=== PATIENT | male | born 1970 | race Caucasian/White ===

== ENCOUNTER 2016-11-01 21:40 | Emergency (ER) | payer OTHER ==
--- NOTE | 2016-11-01 22:34 | ERNOTE ---
Abdominal HPI - Narrative Date of Service: 11/01/16 - General Chief Complaint: Abdominal Pain Time Seen by Provider: 11/01/16 22:31 Source: patient - Immun/Allergies/Home Medications Immunizatons: IMMUNIZATION HX Immunizations Up to Date Yes History of Influenza Vaccine Yes Hx Pneumococcal Vaccination No Allergies/Adverse Reactions: Allergies No Known Allergies Allergy (Verified 03/06/16 16:11) Home Medications: HOME MEDICATIONS NK [No Home Medication] 11/01/16 [Last Taken Unknown] - History of Present Illness Narrative: pt here for c/o of intermittent abdominal pain starting today. 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 He had an umbilical bulged and tenderness . He says he was told he had an umbilical hernia first noticed late last year after a ct for renal stone which also showed a renal tumor. He has since had a partial nephrectomy done in [place] at the end of last year. He has since seen Dr. Toro for the hernia but he did not want to do any surgery until every thing with the renal ca had been sorted. The pt. says he has unfortunately gained 60 pounds in the past few months, he was obese to begin with. He is scheduled to have a repeat CT scan for evaluation of the ca. on per Dr Thomas once insurance approves the test. Pt. says that currently there is no pain. He denies any N, V,D or constipation saying he had a normal BM earlier today. Timing: intermittent, gone now Modifying Factors - (Improves): Present: lying down Modifying Factors - (Worsens): Present: movement, exercise Associated Symptoms: Present: swelling/mass in abdomen Prior Treatment: Present: treated by physician Review of Systems - Review of Systems Constitutional: Present: See HPI EYE: Present: no symptoms reported ENT: Present: no symptoms reported Respiratory: Present: no symptoms reported Cardiology: Present: no symptoms reported Gastrointestinal/Abdominal: Present: See HPI, abdominal pain Genitourinary: Present: no symptoms reported Musculoskeletal: Present: no symptoms reported Skin: Present: no symptoms reported Neurological: Present: no symptoms reported Endocrine: Present: no symptoms reported Hematologic/Lymphatic: Present: no symptoms reported Psych: Present: no symptoms reported All Other Systems: All systems neg except as marked - Patient's Past Medical History Patient History - Medical: Kidney stone, Obesity, Other Patient History - Cardiac/Respiratory: CPAP/BiPAP Home Use, Sleep Apnea Patient History - Cancer: Kidney Patient History - Surgical Procedures: Cancer Surgery, Other Patient History - Other: None - Family History Father Family History - Medical: No pertinent hx Family History - Cardiac/Respiratory: No pertinent hx Mother Family History - Medical: No pertinent hx Family History - Cardiac/Respiratory: No pertinent hx - Social History Living Situations: home Abuse History: No History of abuse Psych History: No pertinent hx Smoking Status: Current every day smoker Have you smoked in the past 12 months: Yes Do you dip or chew tobacco: No Patient requests Smoking Cessation Consult: No Initiate information on Smoking Cessation: No Alcohol Use: none Drug Use: none - Immunizations Immunizations Up to Date: Yes Hx Pneumococcal Vaccination: No History of Influenza Vaccine: Yes Physical Exam - Physical Exam General Appearance: Present: wd/wn, alert, no apparent distress - very obese man. a & o & coop with nad. Respiratory: Present: no respiratory distress, normal breath sounds, lungs clear Cardiovascular/Chest: Present: regular rate, rhythm, no murmur Gastrointestinal/Abdominal: Present: normal bowel sounds, soft, no organomegaly , other - very large soft abdomen. he has healed surgical scars from his nephrectom a few months ago. there is a midline 4 cm healed scar about 3-4 cm proximal to the umbilicus with no sign of incisional defect or weakness on palpation and no tenderness at that site but just distal to that scar and proximal to the umbilicus iss a tender area but no bulging and i do not well an abdominal wall defect though at one point when I had the pt do a valsalva maneuver to see if it would replicate a buging hernia sac I did feel a small gas bubble that quickly receded with minimal pressure but no distended hernia sac was produced. When laying supine and relaxed the pt. states that he had no pain. ED Progress - Vital Signs Patient's Vital Signs:: I have reviewed the patient's vital signs. Vital Signs: Vital Signs 11/01/16 21:43 Temperature 36.8 C Pulse Rate 84 Respiratory 18 Rate Blood Pressure 142/92 O2 Sat by Pulse 96 Oximetry - Progress/Reassessment Chief Complaint: Abdominal Pain Plan - Plan Plan: I DID D/W DR. TORO WHO SUGGESTED THAT IF THERE WAS NO CURRENT BULGING OR INCARCERATION THAT NOTHING ELSE NEED BE DONE AT PRESENT. Departure - Departure Clinical Impression: Umbilical hernia Qualifiers: Obstruction and gangrene presence: without obstruction or gangrene Qualified Code(s): K42.9 - Umbilical hernia without obstruction or gangrene Disposition: Home self-care Condition: Good Instructions: Hernia, Adult, [id number] Additional Instructions: F/U WITH YOUR FAMILY DR OR SURGEON IF HAVING MORE TROUBLE BUT IT WOULD BE BEST TO WORK AT [employer]. IF THE HERNIOS PROTRUDES AGAIN AND IS UNCOMFORTABLE, TRY LAYING FLAT, RELAXING YOUR ABDOMINAL WALL AND IF THE SAC IS PROTRUDING USING THE PADS OF YOUR FINGERS TO GENTLY AND STEADILY PUSH THE SAC BACK IN. RETURN IF WORSE. Referrals: Daniel Roman MD [Primary Care Provider] -
--- OUTSIDE RECORDS SUMMARY | 2016-11-01 22:37 | XMS REPORT | Summary of Care ---
:1970 Author Organization [facility] Care Team Providers Name Role Phone No Family Phy, Physician Primary Care Physician Unavailable Encounter 04/09/16 - 04/11/16 [facility] [address] [place] [address] Vangie Cantu , Dir. Lab: [phone] [place] [address]- Discharge Disposition: Home Attending Physician: Ruiz Price MD Admitting Physician: Ruiz Price MD Referring Physician: Self, Referral Vital Signs Most recent to oldest 1 2 3 [Reference Range]: Orientation Oriented to Person, Place, Time Oriented to Person, Place, Time Oriented to Person, Place, Time (04/11/16 8:59 AM) (04/11/16 12:30 AM) (04/10/16 8:04 PM) Level of Consciousness Alert Alert Alert (04/11/16 8:59 AM) (04/11/16 12:30 AM) (04/10/16 8:04 PM) Activity Up ad karely Up ad karely Bathroom Privileges (04/11/16 9:54 AM) (04/11/16 7:36 AM) (04/11/16 7:20 AM) Assistance of None None None (04/11/16 9:54 AM) (04/11/16 7:36 AM) (04/11/16 7:20 AM) Distance (R) 600 ft 600 ft 300 ft (04/10/16 10:30 AM) (04/10/16 6:28 AM) (04/09/16 11:07 PM) Activity Tolerance Well Well Well (04/11/16 9:54 AM) (04/11/16 7:36 AM) (04/11/16 7:20 AM) Amount of Assist Independent Independent Independent Required (04/11/16 9:54 AM) (04/11/16 7:36 AM) (04/11/16 7:20 AM) Gait Steady Steady Steady (04/11/16 9:54 AM) (04/11/16 7:36 AM) (04/11/16 7:20 AM) Slept Most Most (04/11/16 4:00 AM) (04/11/16 2:01 AM) Respiratory Rate [12-30 18 brpm 18 brpm 18 brpm brpm] (04/11/16 9:45 AM) (04/11/16 7:31 AM) (04/11/16 6:07 AM) Blood Pressure 152/84mm hg 156/107mm hg 148/84mm hg [(reference range (04/11/16 9:45 AM) (04/11/16 7:31 AM) (04/11/16 6:07 AM) unavailable)/61-99 mm hg] Temperature F 98.0 degF 97.9 degF 98.1 degF [97.7-99.9 degF] (04/11/16 9:45 AM) (04/11/16 7:31 AM) (04/11/16 6:07 AM) Height 180.3 cm 180.3 cm (04/09/16 12:21 PM) (04/09/16 12:05 PM) Weight 120.455 kg 120.455 kg (04/09/16 12:21 PM) (04/09/16 12:05 PM) Problem List Condition Effective Dates Status Health Status Informant Smoker(Confirmed)1 Active 1Problem added as a result of documented Tobacco Use. Allergies, Adverse Reactions, Alerts No Known Allergies Medications acetaminophen-oxyCODONE 325 mg-5 mg oral tablet 1 Tab, PO, Q7Dnuec, X 10 day(s), # 40 Tab Start Date: 04/09/16 Stop Date: 04/19/16 Status: Ordereddocusate sodium 100 mg oral capsule 100 mg=1 Cap, PO, BID (Twice Daily), PRN PRN Constipation Start Date: 04/11/16 Status: Ordered Results BASIC CHEMISTRIES Most recent to oldest [Reference Range]: 1 2 Sodium [134-144 mmol/L] 136 mmol/L (04/10/16 4:38 AM) Potassium [3.5-5.2 mmol/L] 4.4 mmol/L (04/10/16 4:38 AM) Chloride [97-108 mmol/L] 99 mmol/L (04/10/16 4:38 AM) CO2 [18-29 mmol/L] 26 mmol/L (04/10/16 4:38 AM) AGAP [5-19 mmol/L] 11 mmol/L (04/10/16 4:38 AM) Gluc [65-99 mg/dL] 184 mg/dL *HI* (04/10/16 4:38 AM) BUN [6-24 mg/dL] 10 mg/dL (04/10/16 4:38 AM) Creatinine [0.76-1.27 mg/dL] 0.84 mg/dL (04/10/16 4:38 AM) eGFR 105 mL/min/1.73 m2 *NA* (04/10/16 4:38 AM) eGFR Amer 127 mL/min/1.73 m2 *NA* (04/10/16 4:38 AM) Bun/Crea [6-20 Ratio] 12 Ratio (04/10/16 4:38 AM) Calc Osmo [273-304] 276 (04/10/16 4:38 AM) Calcium [8.7-10.2 mg/dL] 8.7 mg/dL (04/10/16 4:38 AM) HEMOGRAM Most recent to oldest [Reference Range]: 1 2 WBC [4.80-10.80 thous/uL] 16.75 thous/uL 12.41 thous/uL *HI* *HI* (04/10/16 4:38 AM) (04/09/16 9:11 PM) RBC [4.70-6.10 mill/uL] 4.60 mill/uL 5.13 mill/uL *LOW* (04/09/16 9:11 PM) (04/10/16 4:38 AM) Hgb [14.0-18.0 gm/dL] 13.9 gm/dL 15.8 gm/dL *LOW* (04/09/16 9:11 PM) (04/10/16 4:38 AM) Hct [42.0-52.0 %] 40.8 % 46.0 % *LOW* (04/09/16 9:11 PM) (04/10/16 4:38 AM) MCV [83.0-97.0 fl] 88.7 fl 89.7 fl (04/10/16 4:38 AM) (04/09/16: PM) MCH [27.0-31.0 pg] 30.2 pg 30.8 pg (04/10/16 4:38 AM) (04/09/16: PM) MCHC [32.3-36.5 gm/dL] 34.1 gm/dL 34.3 gm/dL (04/10/16 4:38 AM) (04/09/16:11 PM) Platelet [130-450 thous/uL] 233 thous/uL 237 thous/uL (04/10/16 4:38 AM) (04/09/16: PM) MPV [9.4-12.4 fl] 10.0 fl 10.0 fl (04/10/16 4:38 AM) (04/09/16: PM) RDW-CV [11.5-15.5 %] 13.3 % 13.3 % (04/10/16 4:38 AM) (04/09/16:11 PM) AUTOMATED DIFF Most recent to oldest [Reference Range]: 1 2 Neut % 94.0 % *NA* (04/09/16 9:11 PM) Lymph % 4.1 % *NA* (04/09/16 9: PM) [place] % 1.7 % *NA* (04/09/16: PM) Eos % 0.0 % *NA* (04/09/16: PM) Baso % 0.0 % *NA* (04/09/16: PM) Neut # [1.50-7.50 thous/uL] 11.67 thous/uL *HI* (04/09/16 9:11 PM) Lymph # [1.10-3.00 thous/uL] 0.51 thous/uL *LOW* (04/09/16 9: PM) [place] # [0.10-0.75 thous/uL] 0.21 thous/uL (04/09/16 9:11 PM) Eos # [0.00-0.50 thous/uL] 0.00 thous/uL (04/09/16 9:11 PM) Baso # [0.00-0.10 thous/uL] 0.00 thous/uL (04/09/16 9:11 PM) MANUAL DIFF Most recent to oldest [Reference Range]: 1 2 IG Pc 0.2 % *NA* (04/09/16 9:11 PM) IG Abs [0.00-0.10 thous/uL] 0.02 thous/uL (04/09/16 9:11 PM) Immunizations No data available for this section Procedures Procedure Date Related Diagnosis Body Site Laparoscopic partial nephrectomy1 04/09/16 Reconstruction of left ankle 1988 Cystoscopy2 Cystoscopy3 [id number] removal with [id number] stent Social History Social History Type Response Alcohol Past Substance Abuse Past, Cocaine, 25 Years Smoking Status Current every day smoker; Number of years: 25 Assessment and Plan No data available for this section
[2016-11-01 22:52] VITALS: BP 143/81
== END 2016-11-01 23:13 | disposition home or self-care (01) ==
LOC: ER 21:40
DX: K42.9 Umbilical hernia without obstruction or gangrene (principal); Z72.0 Tobacco use; Z85.528 Personal history of other malignant neoplasm of kidney

== ENCOUNTER 2017-03-05 20:23 | Emergency (ER) | payer OTHER ==
[2017-03-05] MEDS ORDERED: DIPHTH,PERTUSS(ACELL),TET VAC 0.5 ML VIAL IM ONE ×2 (21:02→21:05)
--- NOTE | 2017-03-05 21:10 | ERNOTE ---
Medical Problem HPI - Narrative Date of Service: 03/05/17 - General Chief Complaint: Laceration Time Seen by Provider: 03/05/17 20:47 Source: patient, RN notes reviewed Exam Limitations: no limitations - Immun/Allergies/Home Medications Immunizations: IMMUNIZATION HX Immunizations Up to Date Yes History of Influenza Vaccine Yes Hx Pneumococcal Vaccination No Allergies/Adverse Reactions: Allergies No Known Allergies Allergy (Verified 03/05/17 20:51) Home Medications: HOME MEDICATIONS NK [No Home Medication] 11/01/16 [Last Taken Unknown] - History of Present History Narrative: 46 year old male with a laceration to the palmar surface of his right distal thumb. He cut himself while opening a can of beans about an hour ago. He is unsure of when he last had a tetanus vaccination. Date (Duration): 03/05/17 Time (Timing): 19:00 Review of Systems - Review of Systems Constitutional: Present: no symptoms reported EYE: Present: no symptoms reported ENT: Present: no symptoms reported Respiratory: Present: no symptoms reported Cardiology: Present: no symptoms reported Gastrointestinal/Abdominal: Present: no symptoms reported Genitourinary: Present: no symptoms reported Musculoskeletal: Absent: joint pain, joint swelling Skin: Absent: rash, lesions, change in color Neurological: Absent: dizziness/light-headedness, weakness, numbness, tingling Endocrine: Present: no symptoms reported Hematologic/Lymphatic: Absent: easy bruising, easy bleeding Psych: Present: no symptoms reported - Patient's Past Medical History Patient History - Medical: Kidney stone, Obesity, Other Patient History - Cardiac/Respiratory: CPAP/BiPAP Home Use, Sleep Apnea Patient History - Cancer: Kidney Patient History - Surgical Procedures: Cancer Surgery, Other Patient History - Other: None - Family History Father Family History - Medical: No pertinent hx Family History - Cardiac/Respiratory: No pertinent hx Mother Family History - Medical: No pertinent hx Family History - Cardiac/Respiratory: No pertinent hx - Social History Living Situations: home Abuse History: No History of abuse Psych History: No pertinent hx Smoking Status: Current every day smoker Alcohol Use: none Drug Use: none - Immunizations Immunizations Up to Date: No Hx Pneumococcal Vaccination: No History of Influenza Vaccine: Yes Physical Exam - Physical Exam General Appearance: Present: wd/wn, alert, no apparent distress Respiratory: Present: no respiratory distress, no accessory muscle use Cardiovascular/Chest: Present: normal peripheral pulses Extremity Exam: Present: normal range of motion, no edema Neurological Exam: Present: alert, oriented, normal mood/affect, no motor/ sensory deficits Skin Exam: Present: normal color, warm/dry, other - Right thumb laceration ED Progress - Vital Signs Patient's Vital Signs:: I have reviewed the patient's vital signs. Vital Signs: Vital Signs 03/05/17 03/05/17 20:39 20:52 Temperature 36.8 C 36.8 C Pulse Rate 93 Respiratory 18 18 Rate Blood Pressure 144/92 O2 Sat by Pulse 95 95 Oximetry - Progress/Reassessment Chief Complaint: Laceration Progress:: Improved Procedures Right Distal Volar Finger 1st Digit Anesthesia: 1% Lidocaine I & D Prep: betadine prep, sterile drapes applied Length of Repair/Wound (cm): 3.5 Wound's Depth/Shape: into subcutaneous, flap Wound Explored: clean, to base, in bloodless field, no foreign body Wound Intervention: irrigated w/saline Distal NVT: neuro/vasc intact, no tendon injury Wound Repaired With: sutures Suture Size/Type: 4-0, nylon Number of Sutures: 7 Layer Closure: Simple Wound Dressing: sterile dressing applied Complications: Pt cristiano procedure well Departure Clinical Impression: Laceration of thumb Qualifiers: Encounter type: initial encounter Damage to nail status: without damage Foreign body presence: without foreign body Laterality: right Qualified Code(s) : S61.011A - Laceration without foreign body of right thumb without damage to nail, initial encounter - Departure Disposition: Home Follow Up Needed Condition: Good Instructions: Sutured Wound Care, [id number] Additional Instructions: Keep dressing dry and in place for 24 hours You can then wash the wound gently with soap and water but do not soak in water for prolonged periods of time Apply antibiotic ointment and bandage as needed Have sutures removed in 1 week Referrals: Daniel Roman MD [Primary Care Provider] -
[2017-03-05 21:43] VITALS: BP 141/78
== END 2017-03-05 21:55 | disposition home or self-care (01) ==
LOC: ER 20:23
PROC: 0JQJ0ZZ Repair Right Hand Subcutaneous Tissue and Fascia, Open Approach (ICD-10-PCS; principal; 2017-03-05)
DX: S61.011A Laceration without foreign body of right thumb without damage to nail, initial encounter (principal); Z23 Encounter for immunization; W26.8XXA Contact with other sharp object(s), not elsewhere classified, initial encounter; Y92.000 Kitchen of unspecified non-institutional (private) residence as the place of occurrence of the external cause; F17.200 Nicotine dependence, unspecified, uncomplicated